=== PATIENT | male | born 1980 | race Hispanic/Latino ===

== ENCOUNTER 2023-03-28 23:31 | Emergency (ER) | payer OTHER, SELFPAY ==
[2023-03-29] MEDS ORDERED: IBUPROFEN 400 MG TAB ONE (01:15)
[2023-03-29] MEDS ORDERED: SMZ./TMP. 800/160 MG TABLET ONE (01:16)
--- NOTE | 2023-03-29 02:18 | EDPHYS ---
Physician Documentation [facility] Name: Kenyon Mccracken Age: 43 yrs Sex: Male : 1980 Arrival Date: 03/28/2023 Time: 23:31 Bed 12 Private MD: ED Physician Chris Lentz HPI: 03/29 01:09 This 43 yrs old Male presents to ER via Ambulatory with complaints of ABCESS. snw 01:09 Onset: The symptoms/episode began/occurred suddenly, 3 day(s) ago, and became snw persistent. The patient has not experienced similar symptoms in the past. Historical: - Allergies: 00:05 erythromycin; pf1 - PMHx: 00:05 None; pf1 - PSHx: 00:05 None; pf1 - Immunization history:: Adult Immunizations. - Social history:: Smoking status: Patient reports the use of cigarette tobacco products, smokes one-half pack cigarettes per day, Patient/guardian denies using alcohol, street drugs. ROS: 01:08 Constitutional: Negative for fever, chills, and weight loss, Eyes: Negative for injury, snw pain, redness, and discharge, ENT: Negative for injury, pain, and discharge, Neck: Negative for injury, pain, and swelling, Cardiovascular: Negative for chest pain, palpitations, and edema, Respiratory: Negative for shortness of breath, cough, wheezing, and pleuritic chest pain, Abdomen/GI: Negative for abdominal pain, nausea, vomiting, diarrhea, and constipation, Back: Negative for injury and pain, : Negative for injury, bleeding, discharge, and swelling, MS/Extremity: Negative for injury and deformity, Neuro: Negative for headache, weakness, numbness, tingling, and seizure, Psych: Negative for depression, anxiety, suicide ideation, homicidal ideation, and hallucinations. 01:08 Skin: Positive for abscess, of the right jaw. Exam: 01:07 Constitutional: This is a well developed, well nourished patient who is awake, alert, snw and in no acute distress. Eyes: Pupils equal round and reactive to light, extra-ocular motions intact. Lids and lashes normal. Conjunctiva and sclera are non-icteric and not injected. Cornea within normal limits. Periorbital areas with no swelling, redness, or edema. ENT: Nares patent. No nasal discharge, no septal abnormalities noted. Tympanic membranes are normal and external auditory canals are clear. Oropharynx with no redness, swelling, or masses, exudates, or evidence of obstruction, uvula midline. Mucous membranes moist. Neck: Trachea midline, no thyromegaly or masses palpated, and no cervical lymphadenopathy. Supple, full range of motion without nuchal rigidity, or vertebral point tenderness. No Meningismus. Chest/axilla: Normal chest wall appearance and motion. Nontender with no deformity. No lesions are appreciated. Cardiovascular: Regular rate and rhythm with a normal S1 and S2. No gallops, murmurs, or rubs. Normal PMI, no JVD. No pulse deficits. Respiratory: Lungs have equal breath sounds bilaterally, clear to auscultation and percussion. No rales, rhonchi or wheezes noted. No increased work of breathing, no retractions or nasal flaring. Abdomen/GI: Soft, non-tender, with normal bowel sounds. No distension or tympany. No guarding or rebound. No evidence of tenderness throughout. Back: No spinal tenderness. No costovertebral tenderness. Full range of motion. MS/ Extremity: Pulses equal, no cyanosis. Neurovascular intact. Full, normal range of motion. Neuro: Awake and alert, GCS 15, oriented to person, place, time, and situation. Cranial nerves II-XII grossly intact. Motor strength 5/5 in all extremities. Sensory grossly intact. Cerebellar exam normal. Normal gait. Psych: Awake, alert, with orientation to person, place and time. Behavior, mood, and affect are within normal limits. 01:07 Head/face: Noted is swelling, tenderness, that is moderate, of the right jaw, of the indurated, abscess. Vital Signs: 00:02 BP 130 / 72; Pulse 89; Resp 18; Temp 97.3; Pulse Ox 98% on R/A; Weight 108.86 kg; pf1 Height 5 ft. 7 in. ; Pain 10/10; 01:30 BP 131 / 82; Pulse 82; Resp 16; Temp 97.9; Pulse Ox 99% on R/A; Pain 4/10; pf1 00:02 Body Mass Index 37.59 (108.86 kg, 170.18 cm) pf1 00:02 Pain Scale: Adult pf1 01:30 Pain Scale: Adult pf1 MDM: 00:22 Patient medically screened. [facility] 02:16 Differential diagnosis: bacterial infection, abscess, cellulitis. Data reviewed: vital snw signs, nurses notes. I considered the following discharge prescriptions or medication management in the emergency department Medications were administered in the Emergency Department. See MAR. Counseling: I had a detailed discussion with the patient and/or guardian regarding the historical points, exam findings, and any diagnostic results supporting the discharge/admit diagnosis, the need for outpatient follow up, for definitive care, to return to the emergency department if symptoms worsen or persist or if there are any questions or concerns that arise at home. Special discussion: Based on the history and exam findings, there is no indication for further emergent testing or inpatient evaluation. I discussed with the patient/guardian the need to see the primary care provider for further evaluation of the symptoms. Administered Medications: 01:10 Drug: Trimethoprim-Sulfamethoxazole PO (160 mg-800 mg (DS) 1 tablet Route: PO; pf1 02:00 Follow up: Response: No adverse reaction pf1 01:10 Drug: Ibuprofen PO 400 mg Route: PO; pf1 02:10 Follow up: Response: No adverse reaction; Marked relief of symptoms; Pain is decreased pf1 Disposition Summary: 03/29/23 02:17 Discharge Ordered Location: Home snw Condition: Stable snw Diagnosis - Cutaneous abscess of face snw Followup: snw - With: Emergency Department - When: As needed - Reason: Worsening of condition Followup: snw - With: Private Physician - When: 2 - 3 days - Reason: Recheck today's complaints, Continuance of care, Re-evaluation by your physician Discharge Instructions: - Discharge Summary Sheet snw - Skin Abscess snw - Incision and Drainage snw - Heat Therapy snw Forms: - Medication Reconciliation Form snw - Thank You Letter snw - Antibiotic Education snw - Prescription Opioid Use snw - Patient Portal Instructions snw - Leadership Thank You Letter snw Prescriptions: - mupirocin 2 % Topical ointment - apply 1 application by TOPICAL route 2 times per day for 10 days; 15 gram; snw Refills: 0, Product Selection Permitted - Bactrim DS 800-160 mg Oral Tablet - take 1 tablet by ORAL route every 12 hours for 10 days; 20 tablet; Refills: 0, snw Product Selection Permitted Signatures: Chris Lentz MD MD cha Waters, Shelly, PUMPER GAGER APPRENTICE-C PUMPER GAGER APPRENTICE-Csnw Dhara Villareal, RN RN pf1
--- NOTE | 2023-03-29 02:18 | ER ---
Nurse's Notes [facility] Name: Kenyon Mccracken Age: 43 yrs Sex: Male : 1980 Arrival Date: 03/28/2023 Time: 23:31 Bed 12 Private MD: Diagnosis: Cutaneous abscess of face Presentation: 03/29 00:02 Chief complaint: Patient states: abscess to right cheek with pain of 10,onset 3 days pf1 ago. Coronavirus screen: Vaccine status: Patient reports being unvaccinated. Client denies travel out of the [place] in the last 14 days. At this time, the client does not indicate any symptoms associated with coronavirus-19. Ebola Screen: Patient negative for fever greater than or equal to 101.5 degrees Fahrenheit, and additional compatible Ebola Virus Disease symptoms. Initial Sepsis Screen: Does the patient meet any 2 criteria? No. Patient's initial sepsis screen is negative. Does the patient have a suspected source of infection? No. Patient's initial sepsis screen is negative. Risk Assessment: Do you want to hurt yourself or someone else? Patient reports no desire to harm self or others. 00:02 Method Of Arrival: Ambulatory pf1 00:02 Acuity: CECILY 4 pf1 Historical: - Allergies: 00:05 erythromycin; pf1 - PMHx: 00:05 None; pf1 - PSHx: 00:05 None; pf1 - Immunization history:: Adult Immunizations. - Social history:: Smoking status: Patient reports the use of cigarette tobacco products, smokes one-half pack cigarettes per day, Patient/guardian denies using alcohol, street drugs. Screenin:30 [facility] ED Fall Risk Assessment (Adult) History of falling in the last 3 months, pf1 including since admission No falls in past 3 months (0 pts) Confusion or Disorientation No (0 pts) Intoxicated or Sedated No (0 pts) Impaired Gait No (0 pts) Mobility Assist Device Used No (0 pt) Altered Elimination No (0 pt) Score/Fall Risk Level 0 - 2 = Low Risk Oriented to surroundings, Maintained a safe environment, Educated pt \T\ family on fall prevention, incl call for assistance when getting out of bed, Assessed \T\ reinforced patient's understanding of fall precautions, Provided non-skid footwear, Hourly rounding (assess needs \T\ fall precautionary measures) done, Used ambulatory aids as needed (educated on \T\ assisted with), Used gait belt as appropriate. 00:30 Abuse screen: Denies threats or abuse. Nutritional screening: No deficits noted. pf1 Tuberculosis screening: No symptoms or risk factors identified. Assessment: 00:30 General: Appears in no apparent distress. comfortable, well groomed, well developed, pf1 Behavior is calm, cooperative, appropriate for age, quiet. 00:30 Pain: Complains of pain in right jaw Pain currently is 10 out of 10 on a pain scale. pf1 Neuro: No deficits noted. Level of Consciousness is awake, alert, obeys commands, Oriented to person, place, time, situation. Cardiovascular: No deficits noted. Capillary refill < 3 seconds Patient's skin is warm and dry. Respiratory: No deficits noted. Airway is patent Respiratory effort is even, unlabored, Respiratory pattern is regular, symmetrical. GI: No deficits noted. No signs and/or symptoms were reported involving the gastrointestinal system. : No deficits noted. No signs and/or symptoms were reported regarding the genitourinary system. EENT: No deficits noted. No signs and/or symptoms were reported regarding the EENT system. Derm: Abscess located on right jaw. 01:30 Reassessment: Patient appears in no apparent distress at this time. Patient and/or pf1 family updated on plan of care and expected duration. Pain level reassessed. Patient is alert, oriented x 3, equal unlabored respirations, skin warm/dry/pink. Patient states feeling better. Vital Signs: 00:02 BP 130 / 72; Pulse 89; Resp 18; Temp 97.3; Pulse Ox 98% on R/A; Weight 108.86 kg; pf1 Height 5 ft. 7 in. ; Pain 10/10; 01:30 BP 131 / 82; Pulse 82; Resp 16; Temp 97.9; Pulse Ox 99% on R/A; Pain 4/10; pf1 00:02 Body Mass Index 37.59 (108.86 kg, 170.18 cm) pf1 00:02 Pain Scale: Adult pf1 01:30 Pain Scale: Adult pf1 ED Course: 03/28 23:40 Patient arrived in ED. kj1 03/29 00:05 Triage completed. pf1 00:19 Aline Rendon FNP-C is [facility]. snw 00:19 Chris Lentz MD is Attending Physician. snw 00:30 Patient has correct armband on for positive identification. Bed in low position. Call pf1 light in reach. 00:30 Arm band placed on right wrist. pf1 02:30 Provided Education on: medication administration. pf1 02:30 No provider procedures requiring assistance completed. Patient did not have IV access pf1 during this emergency room visit. Administered Medications: 01:10 Drug: Trimethoprim-Sulfamethoxazole PO (160 mg-800 mg (DS) 1 tablet Route: PO; pf1 02:00 Follow up: Response: No adverse reaction pf1 01:10 Drug: Ibuprofen PO 400 mg Route: PO; pf1 02:10 Follow up: Response: No adverse reaction; Marked relief of symptoms; Pain is decreased pf1 Medication: 02:30 VIS not applicable for this client. pf1 Outcome: 02:17 Discharge ordered by . snw 02:30 Discharged to home ambulatory, with family. pf1 02:30 Condition: improved 02:30 Discharge instructions given to patient, Instructed on discharge instructions, follow up and referral plans. Demonstrated understanding of instructions, follow-up care, medications, wound care, Prescriptions given X 2. 02:30 Patient left the ED. pf1 Signatures: Aline Rendon FNP-C CLIP RIVETER-CsnYen Cotter kj1 Dhara Villareal, RN RN pf1 Corrections: (The following items were deleted from the chart) 00:05 00:02 Pulse 89bpm; Resp 18bpm; Pulse Ox 98% RA; Temp 97.3F; 108.86 kg; Height 5 ft. 7 pf1 in.; BMI: 37.5; Pain 10/10, Adult; pf1 07:31 02:38 Patient left the ED. pf1 pf1
[2023-03-29 03:05] VITALS: BP 130/72; TEMP 97.3; O2SAT 98
== END 2023-03-29 02:38 | disposition home or self-care (01) ==
LOC: ER 23:31
DX: L02.01 Cutaneous abscess of face (principal); F17.210 Nicotine dependence, cigarettes, uncomplicated
CPT/HCPCS: 99283